=== PATIENT | male | born 2005 | race Caucasian/White ===

== ENCOUNTER 2024-12-17 00:42 | Emergency (ER) | payer OTHER ==
[~2024-12-17] VITALS: Ht 180.3 cm; Wt 54.4 kg
--- NOTE | 2024-12-17 01:36 | ERN ---
ED Note History of Present Illness Stated Complaint: LEFT TESTICLE " MASS" Chief Complaint: Testicular Injury/Pain Time Seen by MD: 01:24 Dictation: This is a 19-year-old male who recently got and apparently he and his bright have been sexually very active in the past couple of months and the noticed a masslike lesion on his left testes. He was not impressed and waited for awhile but in the last few days he did feel something that felt like a mass in was sensitive to any palpation. He was concerned about a tumor and came into the ER for further evaluation. Also stated that he lifted a heavy stone in the yd couple of days ago. No fever chills or rigors. No penile discharge or bleeding. Temperature 98 pulse 64 respirations 20 blood pressure 115/75 with a pulse oximetry of 98% on room air Allergies: Coded Allergies: Penicillins (Unverified Allergy, Unknown, 12/17/24) Past Medical History Past Medical History: No Pertinent History Surgical History: None Family History: Negative RN Note Reviewed/Agreed w/PFSH: Yes Review of System Dictation Constitutional: Negative for fever,chills, and weight loss Eyes: Negative for injury, pain,redness, and discharge ENT: Negative for injury,pain or swelling Cardiovascular: Negative for chest pain, palpitations, and edema Respiratory: Negative for shortness of breath, cough, and wheezing, Abdomen/GI: Negative for abdominal pain, nausea, vomiting, diarrhea, and constipation Back: Negative for injury and pain : Negative for injury, bleeding and discharge positive for left testicular lump MS/Extremity: Negative for injury and deformity Skin: Negative for rash, and discoloration Neuro: Negative for headache, weakness, numbness, tingling, and seizure Psych: Negative for suicide ideation, homicidal ideation, and hallucinations Initial Vital Sign VS Vital Signs Date Time Temp Pulse Resp B/P (MAP) Pulse Ox O2 Delivery O2 Flow Rate FiO2 12/17/24 00:44 98.1 64 20 115/75 100 Room Air 12/17/24 00:50 0 21 Physical Exam Dictation General: awake, alert, NAD Head/Face: Normocephalic, atraumatic Eyes: PERRL, EOMI, vision at baseline ENT: oral cavity clear, TMs clear, no signs of infection Neck: Trachea midline, supple, no nuchal rigidity Cardiovascular: RRR, normal S1/S2, No MRGs, no JVD Respiratory: CTAB, no respiratory distress, No rales or wheezes Abdomen: Soft, non-tender, non-distended, normal bowel sounds, no guarding or rebound. Examination of the testes and scrotum revealed very subtle warm me masslike feeling in the left testes. No epididymal thickening. No tense fluid. Skin: Warm, dry, normal turgor, no rash MS/Extremity: Pulses equal, no cyanosis, neurovascular intact, FROM Neuro: COAx4, GCS 15, strength 5/5, CN 2-12 intact, normal cerebellar exam, normal gait, Psych: Normal behavior, mood, and affect normal Extremities-trace edema without any palpable cords, Homans sign is negative Results (Laboratory/Radiology) Laboratory/Radiology Laboratory Tests Test 12/17/24 00:52 Urine Color YELLOW (YELLOW) Urine Appearance CLEAR (CLEAR) Urine pH 6.0 (5.0-8.0) Urine Specific [place] 1.029 (1.001-1.031) Urine Protein 30 mg/dL (NEGATIVE) H Urine Glucose (UA) NEGATIVE mg/dL (NEGATIVE) Urine Ketones NEGATIVE mg/dL (NEGATIVE) Urine Occult Blood NEGATIVE (NEGATIVE) Urine Nitrate NEGATIVE (NEGATIVE) Urine Bilirubin NEGATIVE mg/dL (NEGATIVE) Urine Urobilinogen 0.2 mg/dL (0.2-1.0) Urine Leukocyte Esterase NEGATIVE Todd/uL Urine RBC 2-5 /HPF (0-1) H Urine WBC 2-5 /HPF (0-1) H Urine Squamous Epithelial Cells RARE /HPF (0-2) Urine Bacteria None /HPF (None Seen) Labs Reviewed?: Yes Ultrasound Comment: Ultrasound of the scrotum preliminary findings by stat read reading showed unremarkable bilateral testes flow is demonstrated no torsion no testicular mass left varicocele is noted no hydrocele. ED Course ED Course Orders Procedure Category Date Status Time Us Scrotum & Contents US 12/17/24 Taken 00:45 Urinalysis Profile LAB 12/17/24 Complete 02:25 Vital Signs Date Time Temp Pulse Resp B/P (MAP) Pulse Ox O2 Delivery O2 Flow Rate FiO2 12/17/24 03:18 98.4 66 20 120/74 100 Room Air* 0 21 12/17/24 01:52 98.6 70 20 122/76 100 Room Air* 0 21 12/17/24 00:50 98.6 66 20 124/78 100 Room Air* 0 21 12/17/24 00:44 98.1 64 20 115/75 100 Room Air We will perform diagnostic labs, advanced imaging and administer medications according to the patient's complaint. Once the results are available, will review and personally interpreted the labs to rule out any acute life- threatening emergency the trach require immediate intervention and treatment. I will then re-evaluate the patient after treatment and diagnostic exams have return to determine whether the patient requires any further testing, can safely be discharged home or need further admission to hospital for additional treatment and evaluation. Urinalysis is negative for any acute UTI. Ultrasound of the scrotum and its contents preliminary per automotive paint technician suggestive of a possible varicocele in the left side of the scrotum. Radiology report is pending at this time. I had a long discussion with the patient and his about the possibility of a varicocele however final radiology verification is pending at this time 3:40 a.m.-ultrasound preliminary reading by Radiology showed only varicocele no evidence of any mass lesion. Updated the patient and spouse we will discharge him to follow up with urologist Medical Decision Making MDM MDM: Differential diagnosis: Hydrocele, varicocele, epididymitis, orchitis, tumor Rationale: Tests considered and ordered secondary to shared decision making include: Previous outside records reviewed: Old ER visits. Risk of complication and/or morbidity or mortality of patient management: None Medications-Per medication reconciliation Need for hospitalization: Patient does not meet criteria for hospitalization. Need for emergency major/minor surgery: No There are no social concerns with this patient. Prescription drug management Prescriptions will include symptomatic care Patient's prior external medical records from other ER visits were reviewed by me as indicated. Prior testing and results from previous visits were reviewed. Prior tests were taken into account with medical decision making and resource utilization, independent historian/historians were used to obtain complete [facility] history. I independently interpreted the test that were performed, results were reviewed by me and considered findings on radiology if ordered. Medical management and examination interpretation discussions were had by me with other qualified healthcare professionals as indicated for the patient's care. Problem List Problem List: (1) Left varicocele DX & DISP Disposition: Discharge Departure Impression: Primary Impression: Left varicocele Condition: Stable Additional Instructions: Patient and the caregiver have been informed of all the diagnostic tests and the imaging conducted during the today's visit to the emergency room and has verbalized understanding of the results I have personally reviewed and interpreted all diagnostic exams performed here in the ER today as well as the vital signs documented by the nursing staff. The patient is now being discharged to home and should follow up with the primary care physician or the specialist as directed by the ER staff. Follow-up with primary care provider in 1 to 2 days. Take medications as directed here in the emergency room. Okay to continue home medications unless otherwise discussed during your visit in the emergency room today. Return to your nearest emergency room if symptoms worsen or if there is no improvement. Call 911 if you need immediate assistance. Take Tylenol or Motrin [id number] as needed and if no contraindications are present. Increase oral hydration. A wound culture or urine culture was ordered here in the emergency room department please follow-up with primary care provider and advise them to get repeat ports from our facility. If you had any Ignacio wrap/splints that were applied here, please do not remove them until you see your primary care or specialty. Referrals: SELF,REFERRAL (PCP) ROMEL TAYLOR MD [facility],KIKE Gupta MD Dec 17, 2024 01:36
[2024-12-17 02:42] LABS: APPEARANCE,URINE CLEAR (CLEAR); BILIRUBIN,URINE NEGATIVE (NEGATIVE); COLOR,URINE YELLOW (YELLOW); GLUCOSE, URINE (UA) NEGATIVE (NEGATIVE); KETONES,URINE NEGATIVE (NEGATIVE); LEUKOCYTE ESTERASE ,URINE NEGATIVE Leu/uL (NEGATIVE); NITRATE,URINE NEGATIVE (NEGATIVE); OCCULT BLOOD,URINE NEGATIVE (NEGATIVE); PROTEIN,URINE 30 mg/dL (NEGATIVE); UROBILINOGEN,URINE 0.2 mg/dL (0.2-1.0)
[2024-12-17 02:43] LABS: ADD UA MICROSCOPIC YES
[2024-12-17 02:44] LABS: MUCUS,URINE RARE LPF (None Seen); SQUAMOUS EPITHELIAL CELL,UR RARE /HPF (0-2)
[2024-12-17 03:18] VITALS: BP 120/74; PULSE 66; RESP 20; TEMP 98.4; O2SAT 100
--- NOTE | 2024-12-17 09:18 | HMCIMG ---
Testicular ultrasound with color-flow Doppler Findings: The testes are of normal size and echogenicity. Vascular flow is preserved to both testes- there is no evidence of torsion. There is no evidence of inflammation. No fluid collections are seen. Specifically, there is no hydrocele. The epididymis is unremarkable bilaterally. There is a small left varicocele. Scrotal wall is normal in thickness bilaterally. Impression: Small left varicocele.
== END 2024-12-17 03:47 | disposition home or self-care (01) ==
LOC: EDH 00:42
DX: I86.1 Scrotal varices (principal); Z88.0 Allergy status to penicillin
CPT/HCPCS: 76870; 81001; 99284

== ENCOUNTER 2024-12-24 16:27 | Emergency (ER) | payer OTHER ==
[~2024-12-24] VITALS: Ht 177.8 cm; Wt 54.4 kg
[2024-12-24 16:31] VITALS: BP 111/77; PULSE 86; RESP 16; TEMP 98
--- NOTE | 2024-12-24 16:43 | NUR ---
[employer] DISPATCH CALLED AND INFORMED THAT THE PT HAS LEFT AMA DESPITE AFTER NAUN JOHNSON SPOKE TO HIM ON RISKS OF LEAVING.
--- NOTE | 2024-12-24 16:44 | NUR ---
PT LEFT AND WE DID NOT GET AN OPPORTUNITY TO GET AN AMA FORM SIGNED. REFER TO NOTES PER NAUN JOHNSON
--- NOTE | 2024-12-24 16:57 | ERN ---
General Chief Complaint: Suicidal Ideation Stated Complaint: POSSIBLE OD ON BUSEIRONE ? Time Seen by MD: 16:32 Time Seen by Midlevel: 16:32 Source: patient History of Present Illness Initial Comments The patient is a 19-year-old male presenting to the emergency department evaluation of suicide ideation. The patient states he was having an argument with his and proceeded to take 8-10 tablets of 10 mg of BuSpar in an attempt to harm himself. Patient was no other complaints on arrival. Allergies: Coded Allergies: Penicillins (Unverified Allergy, Unknown, 12/17/24) Past Medical History Past Medical History: No Pertinent History Past Surgical History: None Family History Family History: Negative ROS Dictation CONSTITUTIONAL: Negative except for HPI HEAD/FACE: Negative except for HPI EENT: Negative except for HPI RESPIRATORY: Negative except for HPI GASTROINTESTINAL/ABDOMINAL: Negative except for HPI GENITOURINARY: Negative except for HPI MUSCULOSKELETAL: Negative except for HPI INTEGUMENTARY: Negative except for HPI NEUROLOGICAL/PSYCH: Negative except for HPI HEMATOLOGIC/LYMPHATIC: Negative except for HPI All Systems Negative, Except as noted above. 13 point review of systems assessed and all negative except for above. Physical Exam Physical Exam Dictation PHYSICAL EXAM: GENERAL: alert,, awake oriented x 3 HEENT: EOMI, Sclera non icteric, moist mucosa NECK: Supple, no JVD, trachea midline LUNGS: Clear breath sounds bilaterally. No wheezes HEART: Regular rate and rhythm. Normal S1 and S2, without murmurs ABD: Abdomen soft, nontender. Bowel sounds present EXT: No clubbing or cyanosis, NEURO: Alert and oriented to person, follows commands MDM Patient eloped from the emergency department. PD was called and report was made. ED Course Orders Procedure Category Date Status Time Cbc With Differential LAB 12/24/24 Verified 16:32 Alcohol, Blood LAB 12/24/24 Verified 16:32 Salicylate LAB 12/24/24 Verified 16:32 Acetaminophen LAB 12/24/24 Verified 16:32 Creatine Kinase, Total LAB 12/24/24 Verified 16:32 Basic Metabolic Panel LAB 12/24/24 Verified 16:32 Drug Screen Urine LAB 12/24/24 Verified 16:32 12 Lead Ekg Tracing- EKG 12/24/24 Verified Technical 16:32 Vital Signs Date Time Temp Pulse Resp B/P (MAP) Pulse Ox O2 Delivery O2 Flow Rate FiO2 12/24/24 16:31 98.1 86 16 111/77 96 Room Air 1638: Patient was visibly upset. States he does not want to be here. He only wants to know if he took enough pills to overdose. Patient proceeded to get on a phone call and was heard saying "I am getting the fuck out of there". The patient was advised that the police will be called since he was a danger to himself. Patient proceeded to walk out into the lobby and started yelling vulgar words to what appeared to be his female partner. Police was called and report was filed per charge nurse. DX & DISP Disposition: Other(Comment) (Eloped) Departure Impression: Primary Impression: Eloped from emergency department Additional Impression: Suicidal ideation Condition: Stable Referrals: NONE (PCP) I have reviewed the case, and I agree with, Diagnosis and Plan I performed the substantive portion of the visit. I have reviewed and personally made and approve the management plan that is documented in the note by myself or the JOY. I acknowledge for responsibility for the patient's management plan. ANUN ROJAS Dec 24, 2024 16:57
--- NOTE | 2024-12-24 18:02 | NUR ---
[place] [employer] DID NOT COME IN AND GIVE US A CASE NUMBER FOR REPORT THAT WAS CALLED IN.
== END 2024-12-24 18:06 | disposition left against medical advice (07) ==
LOC: EDH 16:27
DX: R45.851 Suicidal ideations (principal); Z88.0 Allergy status to penicillin
CPT/HCPCS: 99281